=== PATIENT | male | born 1985 | race Caucasian/White ===

== ENCOUNTER 2020-02-22 10:29 | Outpatient (NON) | payer BC, SELFPAY ==
[2020-02-23 18:44] LABS: SARS-CoV-2 RNA PCR Negative
== END 2020-02-22 10:30 ==
PROVIDERS: PCP Nurse Practitioner Family; Visit Provider Family Medicine
DX: Z20.828 Contact with and (suspected) exposure to other viral communicable diseases (principal); R50.9 Fever, unspecified
CPT/HCPCS: 87635; C9803; U0003

== ENCOUNTER → 2020-10-01 00:17 | Outpatient (CLI) | payer BC, SELFPAY ==
[2020-10-01 21:51] LABS: SARS-CoV-2 RNA PCR Negative
== END ==
PROVIDERS: PCP Nurse Practitioner Family; Visit Provider Nurse Practitioner Family
DX: R50.9 Fever, unspecified (principal); Z20.822 Contact with and (suspected) exposure to COVID-19
CPT/HCPCS: C9803; U0003; U0005

== ENCOUNTER 2021-11-07 13:24 | Outpatient (CLI) | payer BC, SELFPAY ==
--- NOTE | ~2021-11-07 | XR_ITS ---
EXAM: XR knee RT 3V DATE: 11/07/2021 13:43 HISTORY: Pain in right knee . COMPARISON: None available. FINDINGS: Normal mineralization. No fracture or dislocation. No lytic or blastic lesion. Mild medial and lateral joint space narrowing. Mild tricompartmental osteophytosis. No erosion or periosteal víctor nge. Soft tissues within normal limits. IMPRESSION: Mild tricompartmental right knee osteoarthritis. Reviewed, dictated and finalized at location [facility].
== END 2021-11-07 13:25 ==
PROVIDERS: PCP Nurse Practitioner Family; Visit Provider Nurse Practitioner Family
DX: M17.11 Unilateral primary osteoarthritis, right knee (principal)
CPT/HCPCS: 73562

== ENCOUNTER 2023-08-29 10:59 | Emergency (ER) | payer BC, SELFPAY ==
[2023-08-29 11:21] VITALS: BP 156/77; PULSE 91; RESP 16; TEMP 37.7; O2SAT 99
--- NOTE | 2023-08-29 11:40 | ED.URI ---
HPI - URI/Sore Throat General Chief Complaint: Upper Respiratory Infection Stated Complaint: bodyaches,dizzy,chest heaviness Time Seen by Provider: 08/29/23 11:40 Source: patient Mode of arrival: ambulatory Limitations: no limitations History of Present Illness HPI Narrative: 38-year-old male presents with complaint of nasal congestion, sore throat, fatigue, headaches, dizziness, cough for the past 2 days. Taking NyQuil to treat headache. Reports chest congestion but no chest pain or shortness breath. all systems reviewed and negative except as noted above. Related Data Home Medications Medication Instructions Recorded Confirmed albuterol sulfate 90 mcg/actuation 1 - 2 puff inhalation Q4-6H PRN 08/29/23 08/29/23 aerosol inhaler Wheezing fluoxetine 40 mg capsule 40 mg PO DAILY 08/29/23 08/29/23 hydroxyzine pamoate 100 mg capsule 100 mg PO QID 08/29/23 08/29/23 mirtazapine 30 mg tablet 30 mg PO DAILY 08/29/23 08/29/23 propranolol 20 mg tablet 20 mg PO DAILY 08/29/23 08/29/23 Allergies Allergy/AdvReac Type Severity Reaction Status Date / Time Penicillins Allergy Unknown Unknown Unverified 08/29/23 11:36 Review of Systems Review of Systems: CONSTITUTIONAL: reports fever, chills, or sweats. EYES: Denies visual changes, redness, or discharge. ENT: Reports rhinorrhea, congestion, sore throat. Denies otalgia. CARDIOVASCULAR: Denies chest pain, palpitations, or edema. RESPIRATORY: Reports cough. Denies dyspnea. GASTROINTESTINAL: Denies abdominal pain, nausea, vomiting, or diarrhea. GENITOURINARY: Denies dysuria or hematuria. SKIN: Denies rash or itching. MUSCULOSKELETAL: Denies back pain, joint pain, or myalgia. NEUROLOGIC: Denies headache, numbness, or weakness. PSYCHIATRIC: Denies anxiety or depression. All other systems reviewed are negative, except as documented in HPI. PMFSH Comments At time of signature, agree with nursing past medical, surgical, social and family history. There is no relevant family history pertinent to the presenting complaint. Exam Narrative: GENERAL: This is a well-nourished, well-developed patient, in no apparent distress. HEAD: normocephalic, atraumatic. EYES: PERRL. Sclera clear/white. Vision is grossly intact. EARS: External ears normal, auditory canals clear and without drainage, TMs normal without perforation. Hearing grossly intact. NOSE: External nose normal with clear nasal drainage, erythema to bilateral nares. THROAT: Mucous membranes moist, Erythema with clear postnasal drainage NECK: Neck supple, non-tender without lymphadenopathy, masses or thyromegaly. CARDIOVASCULAR: Regular rate and rhythm without murmurs, gallops, or rubs. RESPIRATORY: Clear to auscultation. Breath sounds equal bilaterally. No wheezes, rales, or rhonchi. SKIN: warm, Dry, intact with no suspicious lesions or rash, good texture and turgor. NEURO: awake, alert, and oriented to person, place and time. There were no obvious focal neurologic abnormalities. EXTREMITIES: No joint tenderness, effusion, or edema noted. Course Course Level of Care: Express Care Visit Vital Signs Vital signs: Vital Signs Temperature 37.7 C H 08/29/23 11:21 Pulse Rate 91 08/29/23 11:21 Respiratory Rate 16 08/29/23 11:21 Blood Pressure 156/77 H 08/29/23 11:21 Pulse Oximetry 99 08/29/23 11:21 Oxygen Delivery Room Air 08/29/23 11:21 Temperature 37.7 C H 08/29/23 11:21 Pulse Rate 91 08/29/23 11:21 Respiratory Rate 16 08/29/23 11:21 Blood Pressure 156/77 H 08/29/23 11:21 Pulse Oximetry 99 08/29/23 11:21 Oxygen Delivery Room Air 08/29/23 11:21 reviewed MDM - URI/Sore Throat MDM Narrative Medical decision making narrative: Patient is aware of diagnosis, understands and agrees to treatment plan. Anticipatory guidance given. Patient agrees to follow-up as directed and is aware of reasons to seek care at the emergency department. Portions of this record may have been
[2023-08-29 11:48] LABS: EDINFLUASCREEN Negative; EDINFLUBSCREEN Negative; EDSTREPNEGPOS1 Presumptive Negative
== END 2023-08-29 11:55 | disposition home or self-care (01) ==
PROVIDERS: Emergency Provider Nurse Practitioner Family; PCP Family Medicine
DX: U07.1 COVID-19 (principal)
CPT/HCPCS: 87081; 87426; 87804; 87880; 99213; G0463